=== PATIENT | female | born 1965 | race Caucasian/White ===

== ENCOUNTER → 2016-12-03 | Outpatient (CLI) | payer OTHER ==
--- NOTE | ~2016-12-03 | US128 ---
[id number] [facility] [address] [place], [place] [address] [id number] O MR#: [id number] Acc #: [id number] NAME: FELICIA GALLEGOS : 1965 SEX: F STUDY DATE/TIME: 12/03/2016 15:19 UNIT: [facility] ROOM: STUDY DESCRIPTION: US Thyroid Attending Physician: Jess Martinez M.D. Ordering Physician: Jess Martinez M.D. Primary Care Physician: Jess Martinez M.D. MEDICAL IMAGING REPORT This report is preliminary unless electronic signature is present EXAM Thyroid ultrasound DATE 12/03/2016 HISTORY Physician's order states goiter. Patient states abnormal fair screening last year. Not on medications. No current complaints. COMPARISON No previous thyroid ultrasound at this institution for comparison. There is no documented location of outside comparison ultrasound, either. FINDINGS The right thyroid lobe measures 4.4 x 1.3 x 1.4 cm. The left thyroid lobe measures 5.1 x 1.0 x 1.3 cm. The isthmus measures 3 mm in thickness. The thyroid parenchyma appears fairly homogeneous. There is a single hypoechoic solid-appearing nodule within the left upper thyroid pole measuring 1.0 x 0.7 x 0.7 cm. It has a honeycomb-type appearance. It appears hypervascular on color Doppler imaging, however. No additional thyroid nodules are seen. IMPRESSION 1. Mild asymmetric enlargement of the left thyroid lobe containing a single 1 cm solid nodule in its upper pole. Sonographic morphology favors benign etiology, and it does not meet size criteria to warrant fine-needle aspiration at this time, based upon Society of Radiologist's and Ultrasound Criteria. Consider 6-12 month ultrasound follow up. Dictated by... Marysol Salomon M.D. THIS IS AN ELECTRONICALLY VERIFIED REPORT Marysol Salomon M.D. at 12/09/2016 8:30 AM LLJoey/juan josé TD: 12/06/2016 11:55 JOB #: [id number] MEDICAL IMAGING REPORT Page 1 of 1 COPY
== END | disposition home or self-care (01) ==
LOC: CGUS 14:56
DX: E04.9 Nontoxic goiter, unspecified (principal); E04.1 Nontoxic single thyroid nodule
CPT/HCPCS: 76536